=== PATIENT | female | born 1970 | race Caucasian/White ===

== ENCOUNTER 2022-01-21 01:32 | Day surgery (SDC) | payer BC, SELFPAY ==
[2022-01-11 14:38] VITALS: BMI 38.0
[2022-01-11 15:03] VITALS: BMI 38.0
--- NOTE | 2022-01-20 15:19 | PM.HPGS ---
History of Present Illness History of Present Illness Consent: Risks, benefits, and alternatives have been discussed and questions answered. Patient agrees to proceed with procedure. Chief complaint: neoplasm screening Narrative: Lindy Multani is a 51 year old female Referred for colon cancer screening. Review of Systems Review of Systems: All systems reviewed & are unremarkable except as noted in HPI and below PMFSH Surgical History Surgical History History of cholecystectomy Family History Family History Mother Family history of cardiomyopathy Social History Social History Smoking status: Never smoker Second hand tobacco smoke exposure: No Alcohol intake: never Alcohol use details: occasional Substance use: never Substance use type: does not use Living arrangements: with family Gender identity (if verbalized by the patient): Female Sexual Orientation (if Verbalized by the Patient): Straight or Heterosexual Spiritual care concerns: No Meds Home Medications and Allergies Home Medications Medication Instructions Recorded Confirmed Type No Home Medications 12/08/21 01/11/22 History Allergies Allergy/AdvReac Type Severity Reaction Status Date / Time nifedipine Allergy Mild Headache Verified 01/21/22 08:45 phenobarbital Allergy Unknown Unknown Verified 01/21/22 08:45 Exam Resp: Auscultation: clear to auscultation bilaterally Cardio: Rate: regular rate Rhythm: regular rhythm GI: GI Palp: Yes Soft to palpation and No Tenderness to palpation present (GI) Assessment and Plan Assessment and plan (1) Colon cancer screening: Code(s): Z12.11 - Encounter for screening for malignant neoplasm of colon Status: Acute Assessment and Plan: Colonoscopy with possible biopsy or polypectomy or cautery or injection of substances.
[2022-01-21 08:46] VITALS: BP 137/84; PULSE 69; RESP 18; TEMP 36.3; O2SAT 100
[2022-01-21] MEDS: LACTATED RINGERS 1,000 ML 150 ML IV CONT (08:56)
--- NOTE | 2022-01-21 09:03 | P.PNAN_ITS ---
Anes - Initial Pre Proc Eval Procedure: Operation Date: 01/21/22 09:45 Proposed Procedures p Screening Colonoscopy - Antonio Gilman MD Date/Time: 01/21/22 09:03 Surgeon: Antonio Gilman MD Pre Op Diagnosis: neoplasm screening Patient Data Age: 51 Gender: F Height: 1.73 m Weight: 112 kg Last Vital Signs Temp 97.3 F L 01/21/22 08:46 Pulse 69 01/21/22 08:46 Resp 18 01/21/22 08:46 BP 137/84 01/21/22 08:46 Pulse Ox 100 01/21/22 08:46 O2 Del Method Room Air 01/21/22 08:46 Allergies Allergy/AdvReac Type Severity Reaction Status Date / Time nifedipine Allergy Mild Headache Verified 01/21/22 08:45 phenobarbital Allergy Unknown Unknown Verified 01/21/22 08:45 Home Medications Medication Instructions Recorded Confirmed Type No Home Medications 12/08/21 01/11/22 History Patient hx anesthesia problems: none Family hx anesthesia problems: none Results Review: All pre-operative results and documents have been reviewed as part of the pre- operative evaluation. [facility] Surgical History Surgical History History of cholecystectomy Family History Family History Mother Family history of cardiomyopathy Social History Social History Smoking status: Never smoker Second hand tobacco smoke exposure: No Alcohol intake: never Alcohol use details: occasional Substance use: never Substance use type: does not use Living arrangements: with family Gender identity (if verbalized by the patient): Female Sexual Orientation (if Verbalized by the Patient): Straight or Heterosexual Spiritual care concerns: No Anes - Eval Final PreProcedure Day of Procedure 01/21/22 09:03 Patient weight: obese Heart: regular rate and rhythm Lungs: clear to auscultation Airway: Mallampati scale class II Neurological: alert and oriented Last oral intake: >/= 8 hours ASA classification: II Emergent: no Anesthetic plan: proceed Anesthesia type and monitoring: general GIVS and standard monitoring Results Review: All pre-operative results and documents have been reviewed as part of the pre- operative evaluation. Informed Consent: The patient's anesthetic plan and its attendant risks and benefits were discussed with the patient/family/POA. Questions were solicited and answers provided to the satisfaction of the patient/family/POA.
[2022-01-21 09:55] VITALS: BP 115/71; PULSE 64; RESP 23; O2SAT 100
[2022-01-21 10:05] VITALS: BP 119/75; PULSE 68; RESP 17; O2SAT 100
[2022-01-21 10:15] VITALS: BP 121/82; PULSE 67; RESP 18; O2SAT 100
== END 2022-01-21 10:18 | disposition home or self-care (01) ==
PROVIDERS: PCP Family Medicine; Visit Provider Internal Medicine Gastroenterology
PROC: 0DJD8ZZ Inspection of Lower Intestinal Tract, Via Natural or Artificial Opening Endoscopic (ICD-10-PCS; CPT 45378; principal; 2022-01-21 09:45)
DX: Z12.11 Encounter for screening for malignant neoplasm of colon (principal)
CPT/HCPCS: 45378; J2001; J2704; J7120

== ENCOUNTER 2022-02-09 10:17 | Outpatient (CLI) | payer BC, SELFPAY ==
--- NOTE | ~2022-02-09 | XR_ITS ---
EXAMINATION: XR shoulder LT min 2V, XR humerus LT DATE: 02/09/2022 10:48 INDICATION: Posterior left shoulder pain post injury TECHNIQUE: 1. AP internally and externally rotated, AP oblique externally rotated and transscapular Y views of t he left shoulder were obtained. 2. AP and lateral views of the left humerus were obtained on overlapping proximal and distal images. COMPARISON: None FINDINGS: Normal alignment. No fracture. Glenohumeral joint is normal. Mild osteoarthritis at the acromioclavi cular and ulnar trochlear articular the left elbow joint. No elbow joint effusion. Soft tissues are u nremarkable. Visualized portion of the left lung are clear. Mild thoracic dextrocurvature with modera te midthoracic spondylosis. 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 No acute osseous abnormality. Reviewed, dictated and finalized at location [facility]. 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 No acute oss eous abnormality.
== END 2022-02-09 10:18 | disposition home or self-care (01) ==
PROVIDERS: PCP Family Medicine; Visit Provider Nurse Practitioner Family
DX: M79.622 Pain in left upper arm (principal); M25.512 Pain in left shoulder; V89.2XXA Person injured in unspecified motor-vehicle accident, traffic, initial encounter; M19.022 Primary osteoarthritis, left elbow; M19.012 Primary osteoarthritis, left shoulder
CPT/HCPCS: 73030; 73060

== ENCOUNTER → 2022-10-18 07:18 | Outpatient (CLI) | payer OTHER, SELFPAY ==
--- NOTE | ~2022-10-18 | MR_ITS ---
MRI of the left shoulder Technique: Axial proton-density fat-sat images, coronal proton density fat-sat and T2 fat-sat images, and sagittal T1-weighted and T2 fat-sat images were acquired. Clinical History: Pain Findings: No significant degenerative change at the AC joint. Coracoclavicular, coracoacromial, and c oracohumeral ligaments are intact. Supraspinatus and infraspinatus tendons are intact, without partial or full-thickness tear. Subscapul brandyn tendon is intact. Tendon of long head of the biceps is intact. No labral tear identified. Inferior glenohumeral ligament demonstrates thickening and increased signal. There is minimal glenohu meral joint effusion. No degenerative change of the glenohumeral joint. No fluid distention of the [place] bacromial/subdeltoid bursa. No muscle atrophy or edema. Impression: Thickening and increased signal of the inferior glenohumeral ligament can be seen in the setting of a dhesive capsulitis. No other significant findings. Reviewed, dictated and finalized at [facility]. Impression: Thickening and increased signal of the inferior glenohumeral ligament can be se en in the setting of adhesive capsulitis. No other significant findings.
== END ==
PROVIDERS: PCP Family Medicine; Visit Provider Physician Assistant
DX: M25.512 Pain in left shoulder (principal)
CPT/HCPCS: 73221

== ENCOUNTER 2022-11-14 13:02 | Outpatient (CLI) | payer OTHER, SELFPAY ==
--- NOTE | ~2022-11-14 | XR_ITS ---
EXAMINATION: XR lg joint inject/asp w image DATE: 11/14/2022 14:04 INDICATION: Left shoulder adhesive capsulitis TECHNIQUE: A time-out was performed to verify the patient's name, date of , and procedure to b e performed. The procedure including the risks, benefits, and alternatives was discussed with the pat ient. Risks discussed included bleeding and infection. The patient understood the risks and agreed to proceed. The skin overlying the rotator cuff interval of the left glenohumeral joint was prepped an d draped in usual sterile fashion. Anesthetic was administered with 1% lidocaine subcutaneously. A 22 G needle was advanced under fluoroscopic guidance into the joint. Injection of 1 mL of Omnipaque 240 confirmed intra-articular position of the needle. Subsequently, injectate consisting of 7 mm a 5 :2 mixture of 1% lidocaine: 10 mg/mL Kenalog for a total dosage of 20 mg Kenalog was instilled. [place] of contrast was seen confirming intra-articular administration. The needle was removed and the ent ry site was cleaned and dressed. There were no immediate complications. Fluoroscopy exposure time wa s 0.1 minutes. The total number of images was 2. FINDINGS: Real-time fluoroscopy demonstrates the needle in the left glenohumeral joint. Patient's josi n prior to procedure:3/10. Patient's pain following the procedure: 05/27. IMPRESSION: 1. Successful left glenohumeral joint injection of local anesthetic and steroid with no change in the patient's presenting pain. Reviewed, dictated and finalized at location [facility].
== END 2022-11-14 13:03 | disposition home or self-care (01) ==
PROVIDERS: PCP Family Medicine; Visit Provider Nurse Practitioner
DX: M75.02 Adhesive capsulitis of left shoulder (principal)
CPT/HCPCS: 20610; 77002; J3301; Q9966

== ENCOUNTER 2023-02-13 06:51 | Day surgery (SDC) | payer OTHER, SELFPAY ==
--- NOTE | 2023-02-08 12:55 | P.HP_ITS ---
History of Present Illness History of Present Illness Consent: Risks, benefits, and alternatives have been discussed and questions answered. Patient agrees to proceed with procedure. Chief complaint: Neoplasm Screening Narrative: Lindy Multani is a 52 year old female Referred for colon cancer screening. We had attempted this last year but her prep was not satisfactory. 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 Normal colonoscopy Screen for sexually transmitted diseases Surgical History Surgical History H/O breast biopsy L breast - benign 01/14/2020 History of cholecystectomy History of colposcopy CANDY I/II History of gynecologic surgery HSCOPE D&C/ABLATION 11/03/2020 D+C/hysteroscopy- endometriosis/menorrhagia 10/19/2001 laproscopic - endometriosis (1990) History of salpingectomy 02/25/2020 Family History Family History Mother Family history of cardiomyopathy Other Cerebrovascular accident Depression Epilepsy Heart disease Hypertension Social History Social History Smoking status: Former smoker Second hand tobacco smoke exposure: No Alcohol intake: current Drinks per week: 3 Alcohol use details: occasional Substance use: current Substance use type: does not use Lack of Transportation: No Lack of Food: Never True Current Housing: I Have Housing Concerned About Future Housing: No Difficulty Paying Gas/Electric Bills: No Difficulty Paying for Meds: No Currently Unemployed: No Education: Trade/Vocational Certificate Difficulty w/ Childcare or Family Care: No Living arrangements: with family Occupation/Education: occupation 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 Gender identity (if verbalized by the patient): Female Sexual Orientation (if Verbalized by the Patient): Straight or Heterosexual Spiritual care concerns: No Meds Home Medications and Allergies Home Medications Medication Instructions Recorded Confirmed Type No Home Medications 01/03/23 02/13/23 History Allergies Allergy/AdvReac Type Severity Reaction Status Date / Time nifedipine Allergy Mild Headache Verified 02/13/23 07:41 phenobarbital Allergy Unknown Unknown Verified 02/13/23 07:41 Exam Resp: Auscultation: clear to auscultation bilaterally Cardio: Rate: regular rate Rhythm: regular rhythm GI: GI Palp: Yes Soft to palpation and No Tenderness to palpation present (GI) Assessment and Plan Assessment and plan (1) Colon cancer screening: Code(s): Z12.11 - Encounter for screening for malignant neoplasm of colon Status: Acute Assessment and Plan: Colonoscopy with possible biopsy or polypectomy or cautery or injection of substances.
[2023-02-13 07:50] VITALS: BP 133/95; PULSE 70; RESP 16; TEMP 36.9; O2SAT 98
--- NOTE | 2023-02-13 08:23 | WPDANESEPPF ---
Anes - Initial Pre Proc Eval Procedure: Operation Date: 02/13/23 09:00 Proposed Procedures p Screening Colonoscopy - Antonio Gilman MD Date/Time: 02/13/23 08:23 Surgeon: Antonio Gilman MD Pre Op Diagnosis: Neoplasm Screening Patient Data Age: 52 Gender: F Height: 1.73 m Weight: 108 kg Last Vital Signs Temp 36.9 C 02/13/23 07:50 Pulse 70 02/13/23 07:50 Resp 16 02/13/23 07:50 BP 133/95 H 02/13/23 07:50 Pulse Ox 98 02/13/23 07:50 O2 Del Method Room Air 02/13/23 07:50 Allergies Allergy/AdvReac Type Severity Reaction Status Date / Time nifedipine Allergy Mild Headache Verified 02/13/23 07:41 phenobarbital Allergy Unknown Unknown Verified 02/13/23 07:41 Home Medications Medication Instructions Recorded Confirmed Type No Home Medications 01/03/23 02/13/23 History Patient hx anesthesia problems: none Family hx anesthesia problems: none Results Review: All pre-operative results and documents have been reviewed as part of the pre-operative evaluation. 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 Normal colonoscopy Screen for sexually transmitted diseases Surgical History Surgical History H/O breast biopsy L breast - benign 01/14/2020 History of cholecystectomy History of colposcopy CANDY I/II History of gynecologic surgery HSCOPE D&C/ABLATION 11/03/2020 D+C/hysteroscopy- endometriosis/menorrhagia 10/19/2001 laproscopic - endometriosis (1990) History of salpingectomy 02/25/2020 Family History Family History Mother Family history of cardiomyopathy Other Cerebrovascular accident Depression Epilepsy Heart disease Hypertension Social History Social History Smoking status: Former smoker Second hand tobacco smoke exposure: No Alcohol intake: current Drinks per week: 3 Alcohol use details: occasional Substance use: current Substance use type: does not use Lack of Transportation: No Lack of Food: Never True Current Housing: I Have Housing Concerned About Future Housing: No Difficulty Paying Gas/Electric Bills: No Difficulty Paying for Meds: No Currently Unemployed: No Education: Trade/Vocational Certificate Difficulty w/ Childcare or Family Care: No Living arrangements: with family Occupation/Education: occupation 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 Gender identity (if verbalized by the patient): Female Sexual Orientation (if Verbalized by the Patient): Straight or Heterosexual Spiritual care concerns: No Anes - Eval Final PreProcedure Day of Procedure 02/13/23 08:23 Patient weight: obese Heart: regular rate and rhythm Lungs: clear to auscultation Airway: Mallampati scale class II Neurological: alert and oriented Last oral intake: >/= 8 hours ASA classification: II Emergent: no Anesthetic plan: proceed Anesthesia type and monitoring: general GIVS and standard monitoring Results Review: All pre-operative results and documents have been reviewed as part of the pre-operative evaluation. Informed Consent: The patient's anesthetic plan and its attendant risks and benefits were discussed with the patient/family/POA. Questions were solicited and answers provided to the satisfaction of the patient/family/POA.
[2023-02-13] MEDS: LACTATED RINGERS 1,000 ML 150 ML IV CONT (08:46)
[2023-02-13 09:10] VITALS: BP 115/73; PULSE 73; RESP 16; O2SAT 99
[2023-02-13 09:20] VITALS: BP 111/73; PULSE 72; RESP 15; O2SAT 98
--- NOTE | 2023-02-13 09:24 | WPDANESPN ---
Anes - Prog Note Post-Op Date/Time: 02/13/23 09:24 Cardiovascular status: normal Respiratory status: normal Airway patency: baseline Mental status: baseline Post-Op hydration status: normal Vital Signs: Last Vital Signs Temp 36.9 C 02/13/23 07:50 Pulse 72 02/13/23 09:20 Resp 15 02/13/23 09:20 BP 111/73 02/13/23 09:20 Pulse Ox 98 02/13/23 09:20 O2 Del Method Room Air 02/13/23 09:20 Pain Score (VAS): 0 I/O: Intake & Output 02/12/23 02/13/23 02/13/23 23:59 07:59 15:59 Intake Total 500 Balance 500 Patient Feedback: Patient satisfied with anesthetic care.
[2023-02-13 09:30] VITALS: BP 119/88; PULSE 67; RESP 16; O2SAT 98
== END 2023-02-13 09:41 | disposition home or self-care (01) ==
PROVIDERS: PCP Family Medicine; Visit Provider Internal Medicine Gastroenterology
PROC: 0DJD8ZZ Inspection of Lower Intestinal Tract, Via Natural or Artificial Opening Endoscopic (ICD-10-PCS; CPT 45378; principal; 2023-02-13 09:00)
DX: Z12.11 Encounter for screening for malignant neoplasm of colon (principal); D12.5 Benign neoplasm of sigmoid colon; K64.8 Other hemorrhoids
CPT/HCPCS: 45385

== ENCOUNTER 2023-02-13 07:00 | Outpatient (NON) | payer OTHER, SELFPAY | END 2023-02-13 07:01 | disposition home or self-care (01) | PROVIDERS: PCP Family Medicine; Visit Provider Internal Medicine Gastroenterology | DX: Z12.11 Encounter for screening for malignant neoplasm of colon (principal) | CPT/HCPCS: 88305 ==